=== PATIENT | male | born 1985 | race Caucasian/White ===

== ENCOUNTER 2022-05-28 14:26 | Inpatient (IN) ==
[2022-05-28 14:45] VITALS: BMI 34.8
[2022-05-28] MEDS ORDERED: ZOFRAN INJ 4 MG VIAL IVP ONE (14:57)
[2022-05-28] MEDS ORDERED: NS 1,000 ML IV 1,000 ML IV ONE (14:57)
--- NOTE | 2022-05-28 14:57 | DR.N/VMALE ---
HPI Time Seen Time Seen by Provider: 05/28/22 14:56 Primary Care Physician Primary Care Physician: ELISE RODRIGUEZ Complaints Chief Complaint Doctors Comments: 36 y/o male presents being ill since yesterday. Having frequent episodes of nausea, vomiting. Passed some bright blood 2 days ago, stopped. Vomited while waiting to come back, had black specks in it. + distant h/o PUD. Denies black stools. + lightheadedness, weakness. Almost passed out. Having epigastric pain, sharp, does not radiate. Nothing makes it better, nothing makes it worse. Denies fever, cough, congestion. + works in the heat. Chief Complaint:: PT C/O NAUSEA AND VOMITING SINCE YESTERDAY. PT C/O EPIGASTRIC PAIN WHEN HE VOMITS. PT DOES C/O LIGHTHEADEDNESS BUT DENIES PASSING OUT. PT DOES STATEE THAT HE HAD BRIGHT RED BLOOD IN HIS STOOL 2 DAYS AGO. COVID-19 Coronavirus risk:travel/contact w/high risk person: No Has patient experienced Coronavirus symptoms: No Reviewed Nurses Notes Reviewed: Yes Source History Provided: Patient Mode of Arrival Mode of Arrival: Wheelchair Timing Onset of Chief Complaint: 05/28/22 PMH PMH Past Medical History: Yes Past Medical History: Anxiety, Depression and Hypertension Past Medical History Comment: CHRONIC BACK PAIN Past Surgical History: Yes Surgical History: Ortho Surgery Family History History of Family Medical Conditions: Yes Family Medical History: Coronary Artery Disease Social History Does any household member use tobacco: No Alcohol Use: None Do you use any recreational Drugs:: No Lives With: Family Lives Where: Home Travel Risk Coronavirus risk:travel/contact w/high risk person: No Has patient experienced Coronavirus symptoms: No Infectious screening In the last 2 months have you had wt loss of >10#?: NO Have you had fever, night sweats or hemotysis?: No Have you traveled outside the country in the last 6 months?: No Isolation: Standard ROS Review of Systems Constitutional: Weakness and Fatigue Eyes: No Symptoms Reported ENTM: No Symptoms Reported Respiratoy: No Symptoms Reported Cardiovascular: No Symptoms Reported Gastrointestinal/Abdominal: Abdominal Pain, Nausea and Vomiting Genitourinary: No Symptoms Reported Neurological: Weakness and Dizziness Musculoskeletal: No Symptoms Reported Integumentary: No Symptoms Reported Hematologic/Lymphatic: No Symptoms Reported Psychiatric: No Symptoms Reported All Other Systems: Reviewed and Negative PE Vital Signs Vitals: Temperature 98.9 F Pulse Rate 87 Respiratory Rate 20 Blood Pressure [Left Arm] 111/68 Blood Pressure 108/76 O2 Sat by Pulse Oximetry 97 General General Appearance: Alert and In No Apparent Distress Head Head Exam: Normal Inspection Eyes Eye exam: Normal Appearance ENT ENT Exam: Normal Exam and Mucous Membranes Moist Neck Neck Exam: Normal Inspection and Full ROM Respiratory Respiratory Exam: Normal Lung Sounds Bilat; negative Accessory Muscle Use or Respiratory Distress Respiratory Exam: Bilateral: Clear to Auscultation Cardiovascular Cardiovascular Exam: Regular Rate, Normal Rhythm and Normal Heart Sounds Abdominal Exam Abdominal Exam: Normal Inspection, Normal Bowel Sounds, Soft and Tenderness (epigastric > RUQ. No guarding or rebound.) Extremities Extremities Exam: Normal Inspection; negative Edema Neurologic Neurological Exam: Alert, Oriented X3 and CN II-XII Intact; negative Motor Sensory Deficit Psychiatric Psychiatric Exam: Normal Affect Skin Skin Exam: Warm and Dry MDM Differential Diagnosis Differential Diagnosis: Considerations may Include:: Cholecystitis, Gastritis, Gastroenteritis, Pancreatitis and PUD COURSE Treatment Treatment: Pt ill x 2 days, + N/V, epigastric pain. W/u initiated. Given IV f luids, IV zofran/protonix. 1910 - Pt with elevated WBC, 21K, elevated Hgb 18.4 (is a smoker). CMP shows elevated Cr at 2.67, was normal last time checked. Has normal total CK. GB US was obtained, no obvious stones/sludge, no signs of inflammation. Has mildly elevated CBD at [address] of the abd/pelvis obtained, no acute abnormalities. Pt with vomiting, acute kidney injury. Leukocytosis probably reactive, no source for bacterial infection. Recommend admission for further treatment. Discussed with Dr Sampson, accepts the admission. ROR Labs Reviewed Result Diagrams: 05/28/22 15:35 05/28/22 15:35 Laboratory: WBC 21.3 X10^3/uL (3.6-10.0) H 05/28/22 15:35 RBC 5.47 X10^6/uL (4.7-6.0) 05/28/22 15:35 Hgb 18.4 g/dL (13.5-18.0) H 05/28/22 15:35 Hct 53.7 % (42.0-54.0) 05/28/22 15:35 MCV 98.1 fL (80.0-100.0) 05/28/22 15:35 MCH 33.7 pg (27.0-34.0) 05/28/22 15:35 MCHC 34.3 g/dL (33.0-35.0) 05/28/22 15:35 RDW 14.5 % (11.6-16.5) 05/28/22 15:35 Plt Count 401 X10^3/uL (150.0-450.0) 05/28/22 15:35 Plt Count Comment Adequate (ADEQUATE) 05/28/22 15:35 MPV 7.4 fL (7.4-11.0) 05/28/22 15:35 Neut % (Auto) 83.7 % (42.0-75.0) H 05/28/22 15:35 Lymph % (Auto) 9.7 % (21.0-51.0) L 05/28/22 15:35 [place] % (Auto) 5.3 % (0.0-13.0) 05/28/22 15:35 Eos % (Auto) 1.0 % (0.9-2.9) 05/28/22 15:35 Baso % (Auto) 0.3 % (0.2-1.0) 05/28/22 15:35 Neut # (Auto) 17.8 x10^3/uL (2.2-4.8) H 05/28/22 15:35 Lymph # (Auto) 2.1 X10^3/uL (1.3-2.9) 05/28/22 15:35 [place] # (Auto) 1.1 x10^3/uL (0.3-0.8) H 05/28/22 15:35 Eos # (Auto) 0.2 x10^3/uL (0.0-0.2) 05/28/22 15:35 Baso # (Auto) 0.1 X10^3/uL (0.0-0.1) 05/28/22 15:35 Absolute Nucleated RBC 0.0 /100WBC 05/28/22 15:35 Total Counted 100 05/28/22 15:35 Neutrophils % (Manual) 83 % (39-76) H 05/28/22 15:35 Lymphocytes % (Manual) 13 % (13-43) 05/28/22 15:35 Monocytes % (Manual) 3 % (4-9) L 05/28/22 15:35 Eosinophils % (Manual) 1 % (0-6) 05/28/22 15:35 Plt Morphology Comment Normal (NORMAL) 05/28/22 15:35 RBC Morphology Normal (NORMAL) 05/28/22 15:35 Sodium 141 mmol/L (136-145) 05/28/22 15:35 Corrected Sodium TNP 05/28/22 15:35 Potassium 4.4 mmol/L (3.5-5.1) 05/28/22 15:35 Chloride 101 mmol/L (98-107) 05/28/22 15:35 Carbon Dioxide 32.3 mmol/L (21-32) H 05/28/22 15:35 BUN 23 mg/dL (7-18) H 05/28/22 15:35 Creatinine 2.67 mg/dL (0.70-1.30) H 05/28/22 15:35 Est GFR (MDRD) Af Amer 35 (>60) L 05/28/22 15:35 Est GFR (MDRD) Non-Af 29 (>60) L 05/28/22 15:35 Glucose 108 mg/dL (65-99) H 05/28/22 15:35 Calcium 9.5 mg/dL (8.5-10.1) 05/28/22 15:35 Corrected Calcium TNP 05/28/22 15:35 Total Bilirubin 0.50 mg/dL (0.2-1.0) 05/28/22 15:35 AST 26 Units/L (15-37) 05/28/22 15:35 ALT 42 Units/L (12-78) 05/28/22 15:35 Alkaline Phosphatase 127 Units/L (46-116) H 05/28/22 15:35 Creatine Kinase 285 Units/L (39-308) 05/28/22 15:35 Total Protein 9.6 g/dL (6.4-8.2) H 05/28/22 15:35 Albumin 4.6 g/dL (3.4-5.0) 05/28/22 15:35 Globulin 5.0 g/dL (2.5-4.5) H 05/28/22 15:35 Albumin/Globulin Ratio 0.9 Ratio (1.1-2.1) L 05/28/22 15:35 Lipase 97 Units/L (73-393) 05/28/22 15:35 SARS-CoV-2 (PCR) Negative (NEGATIVE) 05/28/22 17:26 Opioid Opioid Risk Tool Age (Blake box if 16-45): Yes History of Preadolescent Sexual Abuse: No Total: 1 Total Score Risk Category: Low Risk Copyright: Jason MULLIGAN predicting aberrant behaviors Discharge Plan Diagnosis Discharge Problem: Vomiting, Acute nontraumatic kidney injury Discharge Plan Patient Disposition: HOME, SELF-CARE Condition: Stable Prescriptions: No Action methylprednisolone [Medrol (Ammon)] 4 mg tablets,dose pack See Rx Instructions .ROUTE .COMPLEX Qty: 21 0RF Rx Instructions: orally per package directions methylprednisolone [Medrol (Ammon)] 4 mg tablets,dose pack See Rx Instructions .ROUTE .COMPLEX Qty: 21 0RF Rx Instructions: orally per package directions tizanidine [Zanaflex] 4 mg tablet 4 mg PO Q8H PRN (Reason: muscle spasticity) Qty: 20 0RF Health Concerns: Post Hospitalization: new medications and changes needed to prevent readmission or further decline. Pt educated and given instructions on all concerns. Plan of Treatment: Continue with present treatment and follow up plan. Pt is to keep follow up appointment as instructed and take medications as ordered. Orders to Discharge Patient Discharge Orders: Discharge (Routine); Ordered 05/28/22 Ordered By: Bhavik Arcos Transfer (Routine); Ordered 05/28/22 Ordered By: Bhavik Arcos Follow ups/Referrals Follow ups/Referrals: ROSA HOANG [Primary Care Provider] - 3 days Instructions Stand Alone Forms: Precautions for COVID19, [facility], Patient Portal, Social Distancing
[2022-05-28] MEDS ORDERED: ZOFRAN INJ 4 MG VIAL ONE (15:06)
[2022-05-28] MEDS ORDERED: NS 1,000 ML IV 1,000 ML ONE ×2 (15:06→21:00)
[2022-05-28] MEDS ORDERED: PROTONIX INJ 40 MG VIAL IVP ONE (15:30)
[2022-05-28 15:43] LABS: BASOPHILS # (AUTO) 0.1 X10^3/uL (0.0-0.1); BASOPHILS % (AUTO) 0.3 % (0.2-1.0); EOSINOPHILS # (AUTO) 0.2 x10^3/uL (0.0-0.2); HEMATOCRIT 53.7 % (42.0-54.0); HEMOGLOBIN 18.4 g/dL (13.5-18.0); LYMPHOCYTES # (AUTO) 2.1 X10^3/uL (1.3-2.9); LYMPHOCYTES % (AUTO) 9.7 % (21.0-51.0); MEAN CORPUSCULAR HEMOGLOBIN 33.7 pg (27.0-34.0); MEAN CORPUSCULAR HGB CONC 34.3 g/dL (33.0-35.0); MEAN CORPUSCULAR VOLUME 98.1 fL (80.0-100.0); MEAN PLATELET VOLUME 7.4 fL (7.4-11.0); MONOCYTES # (AUTO) 1.1 x10^3/uL (0.3-0.8); MONOCYTES % (AUTO) 5.3 % (0.0-13.0); NEUTROPHILS # (AUTO) 17.8 x10^3/uL (2.2-4.8); NEUTROPHILS % (AUTO) 83.7 % (42.0-75.0); RED BLOOD COUNT 5.47 X10^6/uL (4.7-6.0); RED CELL DISTRIBUTION WIDTH 14.5 % (11.6-16.5); WHITE BLOOD COUNT 21.3 X10^3/uL (3.6-10.0)
[2022-05-28] MEDS ORDERED: PROTONIX INJ 40 MG VIAL ONE (15:46)
[2022-05-28 15:54] LABS: ALANINE AMINOTRANSFERASE 42 Units/L (12-78); ALBUMIN 4.6 g/dL (3.4-5.0); ALKALINE PHOSPHATASE 127 Units/L (46-116); ASPARTATE AMINO TRANSFERASE 26 Units/L (15-37); BLOOD UREA NITROGEN 23 mg/dL (7-18); CALCIUM 9.5 mg/dL (8.5-10.1); CARBON DIOXIDE 32.3 mmol/L (21-32); CHLORIDE 101 mmol/L (98-107); CREATINE KINASE 285 Units/L (39-308); CREATININE 2.67 mg/dL (0.70-1.30); LIPASE 97 Units/L (73-393); SODIUM 141 mmol/L (136-145); TOTAL PROTEIN 9.6 g/dL (6.4-8.2); eGFR NON BLACK RACES 29 (>60)
[2022-05-28 16:33] LABS: PLATELET MORPHOLOGY COMMENT NORMAL (NORMAL)
--- NOTE | 2022-05-28 16:54 | US ---
HISTORYReason For StudySTUDYGALL BLADDERCOMPARISONNoneTECHNIQUEMultiple guillen scale and color flow Doppler images of the right upper quadrant were obtained.FINDINGSThe liver is normal in echotexture and size . No focal intraparenchymal mass or intrahepatic biliary ductal dilatation can be observed. The gallbladder fails to demonstrate evidence for cholelithiasis or layering sludge . The common bile duct is mildly dilated measuring 8 mm in width.. No pericholecystic fluid or gallbladder wall thickening can be observed .The right kidney appears normal in size without focal parenchymal mass or nephrolithiasis. The right kidney measurers 11.6 cm in length. No hydronephrosis or perirenal fluid can be observed. The pancreatic head and body are unremarkable. The pancreatic tail is largely obscured by overlying bowel gas.IMPRESSIONMildly dilated common duct of uncertain etiology. No gallstones are seen. Consider follow-up MRCP.Electronically signed by: SHAHID ETIENNE (May 28, 2022 16:53:04)
--- NOTE | 2022-05-28 19:21 | CT ---
HISTORYC/O NAUSEA AND VOMITING SINCE YESTERDAY. PT C/O EPIGASTRIC PAIN WHEN HE VOMITS. PT DOES C/O LIGHTHEADEDNESS BUT DENIES PASSING OUT. PT DOES STATEE THAT HE HAD BRIGHT RED BLOOD IN HIS STOOL 2 DAYS AGO.STUDYABDOMEN/PELVIS W/O CONCOMPARISONCT abdomen and pelvis 01/29/2021TECHNIQUEMultiple CT axial images of the abdomen and pelvis were obtained without IV contrast. Coronal and sagittal images were reconstructed. Dose reduction techniques included Automated Exposure Control (AEC) and adjustment of mA and kV.FINDINGSThe lung bases are clear. Heart size is normal.Liver, gallbladder, spleen, adrenal glands, and pancreas are unremarkable.No abnormal calcifications are present in the kidneys, ureters, or urinary bladder.The kidneys have normal size and shape. There is no hydronephrosis or significant perirenal edema. The bladder is minimally distended. It has no wall thickening or perivesical edema.The bowel is not dilated. There is no wall thickening in the bowel or edema around the bowel. The appendix is normal in size with no inflammation around it. No evidence of appendicitis.Degenerative changes are present in the spine. Fixation hardware in the left femoral head and right femoral neck.The rectus sheath hematoma that was present on the prior study has resolved.IMPRESSION1. No acute finding or significant abnormalityElectronically signed by: Mikey Dorantes (May 28, 2022 19:19:45)
[2022-05-28] MEDS ORDERED: ZOFRAN INJ 4 MG VIAL IVP PRN (20:57)
[2022-05-28] MEDS: NS 1,000 ML IV 1,000 ML IV SCH (21:09)
[2022-05-28] MEDS ORDERED: LEVSIN/MAALOX/LIDOC VISC ONE (22:32)
[2022-05-28] MEDS: LEVSIN/MAALOX/LIDOC VISC PO PRN (22:35)
[2022-05-28] MEDS ORDERED: NICOTINE PATCH TD ONE (22:40)
[2022-05-28] MEDS: NICOTINE PATCH TD SCH (22:47)
[2022-05-29] MEDS ORDERED: NS 1,000 ML IV 1,000 ML ONE ×2 (03:55→11:01)
[2022-05-29] MEDS: NS 1,000 ML IV 1,000 ML IV SCH ×4 (03:57→20:05)
[2022-05-29 04:33] LABS: ALANINE AMINOTRANSFERASE 32 Units/L (12-78); ALBUMIN 3.3 g/dL (3.4-5.0); ALKALINE PHOSPHATASE 96 Units/L (46-116); ASPARTATE AMINO TRANSFERASE 18 Units/L (15-37); BLOOD UREA NITROGEN 29 mg/dL (7-18); CALCIUM 8.3 mg/dL (8.5-10.1); CARBON DIOXIDE 32.2 mmol/L (21-32); CHLORIDE 103 mmol/L (98-107); COR CA(FOR HYPOALB) 8.9 mg/dL (8.5-10.1); CREATININE 1.91 mg/dL (0.70-1.30); SODIUM 141 mmol/L (136-145); TOTAL PROTEIN 7.2 g/dL (6.4-8.2); eGFR NON BLACK RACES 42 (>60)
[2022-05-29 04:58] LABS: BASOPHILS % (AUTO) 0.3 % (0.2-1.0); EOSINOPHILS # (AUTO) 0.4 x10^3/uL (0.0-0.2); EOSINOPHILS % (AUTO) 3.6 % (0.9-2.9); HEMATOCRIT 46.2 % (42.0-54.0); LYMPHOCYTES # (AUTO) 3.5 X10^3/uL (1.3-2.9); LYMPHOCYTES % (AUTO) 28.1 % (21.0-51.0); MEAN CORPUSCULAR HEMOGLOBIN 33.7 pg (27.0-34.0); MEAN CORPUSCULAR HGB CONC 33.8 g/dL (33.0-35.0); MEAN CORPUSCULAR VOLUME 99.7 fL (80.0-100.0); MEAN PLATELET VOLUME 7.6 fL (7.4-11.0); MONOCYTES # (AUTO) 0.9 x10^3/uL (0.3-0.8); MONOCYTES % (AUTO) 7.2 % (0.0-13.0); NEUTROPHILS # (AUTO) 7.5 x10^3/uL (2.2-4.8); NEUTROPHILS % (AUTO) 60.8 % (42.0-75.0); RED BLOOD COUNT 4.64 X10^6/uL (4.7-6.0); RED CELL DISTRIBUTION WIDTH 14.4 % (11.6-16.5); WHITE BLOOD COUNT 12.3 X10^3/uL (3.6-10.0)
[2022-05-29 05:20] LABS: HEMOGLOBIN 15.6 g/dL (13.5-18.0)
--- NOTE | 2022-05-29 08:16 | DR.H&P ---
H&P History & Physical for Day of: H&P Date: 05/29/22 Chief Complaint Chief Complaint: Nausea/vomiting Blood in stool Abdominal pain Allergies Allergies Allergy/AdvReac Type Severity Reaction Status Date / Time No Known Drug Allergies Allergy Verified 01/02/21 13:07 History of Present Illness History of Present Illness: Pt is a 36 year old male past medical history of hypertension presenting with nausea, vomiting, abdominal pain for the past two days. He reports also feeling lightheaded and weak. He also states he noticed blood a week ago in his stool. Has not had any recent episodes. 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 Labs/imaging: Wbc 21>12.3, Hgb 18.4>15.6, Plt 401>333, Na 141, K 4, Creatinine 2.67>1.91, Glucose 87, Lipase 97, FOBT pending, CTAP was obtained that revealed: no acute findings, Gallbladder ultrasound noted: Mildly dilated common duct of uncertain etiology. No gallstones are seen. Consider follow-up MRCP. Pt was started on IVF NS@150ml/h, IV protonix 40mg BID, GI cocktail, Zofran prn. Will restart home medications. Continue IVF for acute renal failure likely due to dehydration. Monitor renal function, hold nephrotoxic agents. Will consult GI-Dr Weaver for further evaluation. Continue to closely monitor and follow up labs/imaging. Past Medical History Past Medical History: Anxiety, Depression and Hypertension Past Surgical History Surgical History: Ortho Surgery and Other Family History Family Medical History: Coronary Artery Disease Social History Type of Tobacco Use: Cigarettes Does any household member use tobacco: No Alcohol Use: Heavy and DAILY Drug Use: Marijuana Medications Home Medications: No Known Drug Allergies Allergy (Verified 01/02/21 13:07) Labs Result Diagrams: 05/29/22 03:10 05/29/22 03:10 Labs: Laboratory WBC 12.3 X10^3/uL (3.6-10.0) H D 05/29/22 03:10 RBC 4.64 X10^6/uL (4.7-6.0) L 05/29/22 03:10 Hgb 15.6 g/dL (13.5-18.0) D 05/29/22 03:10 Hct 46.2 % (42.0-54.0) 05/29/22 03:10 MCV 99.7 fL (80.0-100.0) 05/29/22 03:10 MCH 33.7 pg (27.0-34.0) 05/29/22 03:10 MCHC 33.8 g/dL (33.0-35.0) 05/29/22 03:10 RDW 14.4 % (11.6-16.5) 05/29/22 03:10 Plt Count 333 X10^3/uL (150.0-450.0) 05/29/22 03:10 Plt Count Comment Adequate (ADEQUATE) 05/28/22 15:35 MPV 7.6 fL (7.4-11.0) 05/29/22 03:10 Neut % (Auto) 60.8 % (42.0-75.0) 05/29/22 03:10 Lymph % (Auto) 28.1 % (21.0-51.0) 05/29/22 03:10 [place] % (Auto) 7.2 % (0.0-13.0) 05/29/22 03:10 Eos % (Auto) 3.6 % (0.9-2.9) H 05/29/22 03:10 Baso % (Auto) 0.3 % (0.2-1.0) 05/29/22 03:10 Neut # (Auto) 7.5 x10^3/uL (2.2-4.8) H 05/29/22 03:10 Lymph # (Auto) 3.5 X10^3/uL (1.3-2.9) H 05/29/22 03:10 [place] # (Auto) 0.9 x10^3/uL (0.3-0.8) H 05/29/22 03:10 Eos # (Auto) 0.4 x10^3/uL (0.0-0.2) H 05/29/22 03:10 Baso # (Auto) 0.0 X10^3/uL (0.0-0.1) 05/29/22 03:10 Absolute Nucleated RBC 0.1 /100WBC 05/29/22 03:10 Total Counted 100 05/28/22 15:35 Neutrophils % (Manual) 83 % (39-76) H 05/28/22 15:35 Lymphocytes % (Manual) 13 % (13-43) 05/28/22 15:35 Monocytes % (Manual) 3 % (4-9) L 05/28/22 15:35 Eosinophils % (Manual) 1 % (0-6) 05/28/22 15:35 Plt Morphology Comment Normal (NORMAL) 05/28/22 15:35 RBC Morphology Normal (NORMAL) 05/28/22 15:35 Sodium 141 mmol/L (136-145) 05/29/22 03:10 Corrected Sodium TNP 05/29/22 03:10 Potassium 4.0 mmol/L (3.5-5.1) 05/29/22 03:10 Chloride 103 mmol/L (98-107) 05/29/22 03:10 Carbon Dioxide 32.2 mmol/L (21-32) H 05/29/22 03:10 BUN 29 mg/dL (7-18) H 05/29/22 03:10 Creatinine 1.91 mg/dL (0.70-1.30) H 05/29/22 03:10 Est GFR (MDRD) Af Amer 51 (>60) L 05/29/22 03:10 Est GFR (MDRD) Non-Af 42 (>60) L 05/29/22 03:10 Glucose 87 mg/dL (65-99) 05/29/22 03:10 Calcium 8.3 mg/dL (8.5-10.1) L 05/29/22 03:10 Corrected Calcium 8.9 mg/dL (8.5-10.1) 05/29/22 03:10 Iron 128 ug/dL (50-175) 05/28/22 15:35 Transferrin 406 mg/dL (202-364) H 05/28/22 15:35 Ferritin 67 ng/mL (26-388) 05/28/22 15:35 Total Bilirubin 0.30 mg/dL (0.2-1.0) 05/29/22 03:10 AST 18 Units/L (15-37) 05/29/22 03:10 ALT 32 Units/L (12-78) 05/29/22 03:10 Alkaline Phosphatase 96 Units/L (46-116) 05/29/22 03:10 Creatine Kinase 285 Units/L (39-308) 05/28/22 15:35 Total Protein 7.2 g/dL (6.4-8.2) 05/29/22 03:10 Albumin 3.3 g/dL (3.4-5.0) L 05/29/22 03:10 Globulin 3.9 g/dL (2.5-4.5) 05/29/22 03:10 Albumin/Globulin Ratio 0.8 Ratio (1.1-2.1) L 05/29/22 03:10 Lipase 97 Units/L (73-393) 05/28/22 15:35 Vitamin B12 294 pg/mL (193-986) 05/28/22 15:35 Folate 19.2 ng/mL (>8.6) 05/28/22 15:35 SARS-CoV-2 (PCR) Negative (NEGATIVE) 05/28/22 17:26 Review of Systems Constitutional: Weakness Eyes: No Symptoms Reported ENT: No Symptoms Reported Respiratory: No Symptoms Reported Cardiovascular: No Symptoms Reported Gastrointestinal: Nausea, Vomiting and Abdominal Pain Genitourinary: No Symptoms Reported Musculoskeletal: No Symptoms Reported Skin: No Symptoms Reported Neurological: No Symptoms Reported Physical Exam Vital Signs: Temperature 98.5 F Pulse Rate [Right] 89 Pulse Rate 87 Respiratory Rate 18 Blood Pressure [Left Arm] 154/74 Blood Pressure 108/76 O2 Sat by Pulse Oximetry 97 Oriented: Normal Eyes: Normal Ear: Normal Nose: Normal Throat: Normal Respiratory: Clear Throughout Cardiovascular: Normal : Normal Auscultation: Bowel Sounds: Normal Palpation: Normal Tenderness: Epigastric Skin: Normal Musculoskeletal: Normal Psychiatric: Normal Mood Description: Calm and Appropriate Affect: Normal Speech Pattern: Clear and Appropriate Assessment/Plan (1) Acute renal failure (ARF): Narrative Support Text: IVF Monitor renal function Status: Acute (2) Nausea & vomiting: Status: Acute Review H&P Reviewed: Yes Patient was examined?: Yes
[2022-05-29] MEDS: NICOTINE PATCH TD SCH ×2 (09:53→21:46)
[2022-05-29] MEDS: PROTONIX INJ 40 MG VIAL IVP SCH ×2 (09:54→20:39)
[2022-05-29] MEDS ORDERED: NORCO 5/325 MG TAB ONE (09:55)
[2022-05-29] MEDS: NORCO 5/325 MG TAB PO PRN ×2 (09:55→19:26)
[2022-05-29] MEDS ORDERED: ZOFRAN INJ 4 MG VIAL IVP PRN (11:17)
[2022-05-29] MEDS ORDERED: LEVSIN/MAALOX/LIDOC VISC ONE (13:55)
[2022-05-29] MEDS: LEVSIN/MAALOX/LIDOC VISC PO PRN ×2 (13:56→19:27)
--- NOTE | 2022-05-29 17:21 | DR.CONSULT ---
Consult - Consultation for Day of: Date: 05/29/22 - Chief Complaint Chief Complaint: N/V, abdominal pain - History of Present Illness History of Present Illness: Pt is a 36 y/o who is referred for N/V and abdominal pain. Pt has complaints of N/V x3 days, hematemesis x1 day, abdominal pain, and dyspepsia. Pt denies dysphagia, constipation, hematochezia and melena. However, pt does report he had diarrhea 5 days ago that was bloody. Pt currently not taking any H2 blockers or PPIs. No previous colonoscopy reported. Last EGD over 10 years ago. No family history of colon cancer. Pt reports occasional use of NSAIDs. - Past Medical History Past Medical History: Hypertension, Depression, Anxiety - Past Surgical History Surgical History: Ortho Surgery, Other - Family History Family Medical History: Coronary Artery Disease - Social History Type of Tobacco Use: Cigarettes Does any household member use tobacco: No Alcohol Use: DAILY, Heavy Drug Use: Marijuana - Medications Home Medications: No Known Drug Allergies Allergy (Verified 01/02/21 13:07) - Review of Systems Constitutional: No Symptoms Reported Eyes: No Symptoms Reported ENT: No Symptoms Reported Respiratory: No Symptoms Reported Cardiovascular: No Symptoms Reported Gastrointestinal: No Symptoms Reported, Nausea, Vomiting, Abdominal Pain Genitourinary: No Symptoms Reported Musculoskeletal: No Symptoms Reported Skin: No Symptoms Reported Neurological: No Symptoms Reported - Physical Exam Vital Signs: Temperature 98.2 F Pulse Rate [Right] 66 Pulse Rate 87 Respiratory Rate 20 Blood Pressure [Left Arm] 138/59 Blood Pressure 108/76 O2 Sat by Pulse Oximetry 96 Oriented: Normal Eyes: Normal Ear: Normal Nose: Normal Throat: Normal Respiratory: Clear Throughout Cardiovascular: Normal : Normal Auscultation: Bowel Sounds: Normal Tenderness: RUQ Skin: Normal Musculoskeletal: Normal Psychiatric: Normal Mood Description: Calm Speech Pattern: Clear - Plan Plan: Assessment. 1. N/V, abdominal pain, severe dehydration. Plan. 1. EGD in AM. Plan d/w Dr. Weaver - Allergies Allergies/Adverse Reactions: Allergies Allergy/AdvReac Type Severity Reaction Status Date / Time No Known Drug Allergies Allergy Verified 01/02/21 13:07
[2022-05-30] MEDS: NS 1,000 ML IV 1,000 ML IV SCH ×3 (04:13→15:56)
[2022-05-30 06:12] LABS: BASOPHILS % (AUTO) 0.5 % (0.2-1.0); EOSINOPHILS # (AUTO) 0.3 x10^3/uL (0.0-0.2); EOSINOPHILS % (AUTO) 3.7 % (0.9-2.9); HEMATOCRIT 41.3 % (42.0-54.0); LYMPHOCYTES # (AUTO) 3.1 X10^3/uL (1.3-2.9); LYMPHOCYTES % (AUTO) 36.3 % (21.0-51.0); MEAN CORPUSCULAR HEMOGLOBIN 33.9 pg (27.0-34.0); MEAN CORPUSCULAR VOLUME 99.8 fL (80.0-100.0); MEAN PLATELET VOLUME 7.9 fL (7.4-11.0); MONOCYTES # (AUTO) 0.5 x10^3/uL (0.3-0.8); MONOCYTES % (AUTO) 5.6 % (0.0-13.0); NEUTROPHILS # (AUTO) 4.6 x10^3/uL (2.2-4.8); NEUTROPHILS % (AUTO) 53.9 % (42.0-75.0); RED BLOOD COUNT 4.14 X10^6/uL (4.7-6.0); RED CELL DISTRIBUTION WIDTH 14.2 % (11.6-16.5); WHITE BLOOD COUNT 8.6 X10^3/uL (3.6-10.0)
[2022-05-30 06:23] LABS: ALANINE AMINOTRANSFERASE 27 Units/L (12-78); ALBUMIN 2.7 g/dL (3.4-5.0); ALKALINE PHOSPHATASE 77 Units/L (46-116); ASPARTATE AMINO TRANSFERASE 10 Units/L (15-37); BLOOD UREA NITROGEN 23 mg/dL (7-18); CALCIUM 7.8 mg/dL (8.5-10.1); CARBON DIOXIDE 26.6 mmol/L (21-32); CHLORIDE 109 mmol/L (98-107); COR CA(FOR HYPOALB) 8.8 mg/dL (8.5-10.1); CREATININE 0.93 mg/dL (0.70-1.30); SODIUM 140 mmol/L (136-145); eGFR NON BLACK RACES > 60 (>60)
[2022-05-30] MEDS: NICOTINE PATCH TD SCH (09:56)
[2022-05-30] MEDS: PROTONIX INJ 40 MG VIAL IVP SCH (09:57)
[2022-05-30] MEDS: NORCO 5/325 MG TAB PO PRN ×2 (10:04→17:59)
[2022-05-30] MEDS ORDERED: D5 LR 1,000 ML 1,000 ML IV ONE (13:52)
[2022-05-30] MEDS ORDERED: DIPRIVAN VIAL 20 ML ONE (14:38)
--- NOTE | 2022-05-30 15:43 | PCM.PROG ---
Progress Note Progress Note for Day of Date of Exam: 05/30/22 Subjective Subjective: Pt is a 36 year old male past medical history of hypertension admitted for acute renal failure, abdominal pain, persistent nausea, vomiting. This morning he reports his symptoms have improved compared to yesterday. No acute events overnight. Labs/imaging: Wbc 8.6, Hgb 14, Plt 258, Na 140, K 4.1, Creatinine 0.93, Glucose 96. Pt is currently on IVF NS@150ml/h, IV protonix 40mg BID, GI cocktail, Zofran prn. Home medications were resumed. Significant improvement in renal function, continue to monitor. GI-Dr Weaver was consulted for further evaluation, pt is scheduled for EGD today. Continue to closely monitor and follow up labs and post-procedure results. Past Medical Family Social History Allergies: Allergies No Known Drug Allergies Allergy (Verified 01/02/21 13:07) Vital Signs and I&O's Vital Signs: Temperature 97.8 F Pulse Rate [Right] 64 Pulse Rate 56 Respiratory Rate 19 Blood Pressure [Left Arm] 134/79 Blood Pressure 119/81 O2 Sat by Pulse Oximetry 100 Intake and Output: Intake & Output 05/27/22 05/28/22 05/29/22 05/30/22 23:59 23:59 23:59 23:59 Intake Total 1350 / 1350 2120 / 2120 1300 / 1300 Balance 1350 / 1350 2120 / 2120 1300 / 1300 Physical Exam Oriented: Normal Eyes: Normal Ear: Normal Nose: Normal Throat: Normal Cardiovascular: Normal : Normal Auscultation: Bowel Sounds: Normal Tenderness: Epigastric Skin: Normal Musculoskeletal: Normal Psychiatric: Normal Mood Description: Calm Affect: Normal Speech Pattern: Clear and Appropriate Laboratory and Diagnostics Result Diagrams: 05/30/22 05:04 05/30/22 05:04 Labs: Laboratory WBC 8.6 X10^3/uL (3.6-10.0) 05/30/22 05:04 RBC 4.14 X10^6/uL (4.7-6.0) L 05/30/22 05:04 Hgb 14.0 g/dL (13.5-18.0) 05/30/22 05:04 Hct 41.3 % (42.0-54.0) L 05/30/22 05:04 MCV 99.8 fL (80.0-100.0) 05/30/22 05:04 MCH 33.9 pg (27.0-34.0) 05/30/22 05:04 MCHC 34.0 g/dL (33.0-35.0) 05/30/22 05:04 RDW 14.2 % (11.6-16.5) 05/30/22 05:04 Plt Count 258 X10^3/uL (150.0-450.0) 05/30/22 05:04 Plt Count Comment Adequate (ADEQUATE) 05/28/22 15:35 MPV 7.9 fL (7.4-11.0) 05/30/22 05:04 Neut % (Auto) 53.9 % (42.0-75.0) 05/30/22 05:04 Lymph % (Auto) 36.3 % (21.0-51.0) 05/30/22 05:04 [place] % (Auto) 5.6 % (0.0-13.0) 05/30/22 05:04 Eos % (Auto) 3.7 % (0.9-2.9) H 05/30/22 05:04 Baso % (Auto) 0.5 % (0.2-1.0) 05/30/22 05:04 Neut # (Auto) 4.6 x10^3/uL (2.2-4.8) 05/30/22 05:04 Lymph # (Auto) 3.1 X10^3/uL (1.3-2.9) H 05/30/22 05:04 [place] # (Auto) 0.5 x10^3/uL (0.3-0.8) 05/30/22 05:04 Eos # (Auto) 0.3 x10^3/uL (0.0-0.2) H 05/30/22 05:04 Baso # (Auto) 0.0 X10^3/uL (0.0-0.1) 05/30/22 05:04 Absolute Nucleated RBC 0.1 /100WBC 05/30/22 05:04 Total Counted 100 05/28/22 15:35 Neutrophils % (Manual) 83 % (39-76) H 05/28/22 15:35 Lymphocytes % (Manual) 13 % (13-43) 05/28/22 15:35 Monocytes % (Manual) 3 % (4-9) L 05/28/22 15:35 Eosinophils % (Manual) 1 % (0-6) 05/28/22 15:35 Plt Morphology Comment Normal (NORMAL) 05/28/22 15:35 RBC Morphology Normal (NORMAL) 05/28/22 15:35 Sodium 140 mmol/L (136-145) 05/30/22 05:04 Corrected Sodium TNP 05/30/22 05:04 Potassium 4.1 mmol/L (3.5-5.1) 05/30/22 05:04 Chloride 109 mmol/L (98-107) H 05/30/22 05:04 Carbon Dioxide 26.6 mmol/L (21-32) 05/30/22 05:04 BUN 23 mg/dL (7-18) H 05/30/22 05:04 Creatinine 0.93 mg/dL (0.70-1.30) 05/30/22 05:04 Est GFR (MDRD) Af Amer > 60 (>60) 05/30/22 05:04 Est GFR (MDRD) Non-Af > 60 (>60) 05/30/22 05:04 Glucose 96 mg/dL (65-99) 05/30/22 05:04 Calcium 7.8 mg/dL (8.5-10.1) L 05/30/22 05:04 Corrected Calcium 8.8 mg/dL (8.5-10.1) 05/30/22 05:04 Iron 128 ug/dL (50-175) 05/28/22 15:35 Transferrin 406 mg/dL (202-364) H 05/28/22 15:35 Ferritin 67 ng/mL (26-388) 05/28/22 15:35 Total Bilirubin 0.20 mg/dL (0.2-1.0) 05/30/22 05:04 AST 10 Units/L (15-37) L 05/30/22 05:04 ALT 27 Units/L (12-78) 05/30/22 05:04 Alkaline Phosphatase 77 Units/L (46-116) 05/30/22 05:04 Creatine Kinase 285 Units/L (39-308) 05/28/22 15:35 Total Protein 6.0 g/dL (6.4-8.2) L 05/30/22 05:04 Albumin 2.7 g/dL (3.4-5.0) L 05/30/22 05:04 Globulin 3.3 g/dL (2.5-4.5) 05/30/22 05:04 Albumin/Globulin Ratio 0.8 Ratio (1.1-2.1) L 05/30/22 05:04 Lipase 97 Units/L (73-393) 05/28/22 15:35 Vitamin B12 294 pg/mL (193-986) 05/28/22 15:35 Folate 19.2 ng/mL (>8.6) 05/28/22 15:35 SARS-CoV-2 (PCR) Negative (NEGATIVE) 05/28/22 17:26 Tissue Pathology To follow 05/30/22 14:41 Plan (1) Acute renal failure (ARF): Status: Acute (2) Nausea & vomiting: Status: Acute
[2022-05-30 18:11] VITALS: BP 139/89
[2022-05-30] MEDS ORDERED: PATIENT'S HOME MEDICATION PO SCH (21:00)
[2022-05-30] MEDS ORDERED: SEROquel TAB 25 mg PO SCH (21:00)
[2022-05-30] MEDS ORDERED: CARAFATE PO SCH (22:00)
--- NOTE | 2022-05-31 07:40 | W.DIS.FURT ---
Summary of Discharge Discharge Summary of Date Date of Exam: 05/30/22 Admission Date Date of Admission: 05/28/22 Admission Diagnosis Patient Problems (Updated 05/29/22 @ 11:17 by Herson Johnson) Vomiting (Acute) R11.10 Acute nontraumatic kidney injury (Acute) N17.9 Hospital Course: Pt left AMA. He did have EGD that showed distal esophageal ulcers, gastric ulcer, and moderately severe erosive gastritis. Recommendations were protonix 40mg BID and low fat diet with plan to follow up on biopsy results with GI outpatient. However, pt left AMA before any of this could be discussed. Vital Signs: Vital Signs (72 hours) 05/28/22 14:27 05/28/22 16:30 05/28/22 17:00 Temperature 98.9 F Pulse Rate 87 Pulse Rate [Right] Respiratory Rate 20 Blood Pressure 108/76 Blood Pressure [Left Arm] 108/69 116/71 O2 Sat by Pulse Oximetry 97 Oxygen Delivery Method Room Air 05/28/22 17:30 05/28/22 18:05 05/28/22 22:35 Temperature Pulse Rate Pulse Rate [Right] Respiratory Rate 18 Blood Pressure Blood Pressure [Left Arm] 112/74 111/68 O2 Sat by Pulse Oximetry Oxygen Delivery Method 05/29/22 00:00 05/28/22 23:35 05/28/22 20:57 Temperature 98.2 F Pulse Rate Pulse Rate [Right] 67 Respiratory Rate 16 18 Blood Pressure Blood Pressure [Left Arm] 103/58 O2 Sat by Pulse Oximetry 99 Oxygen Delivery Method Room Air Room Air 05/29/22 04:00 05/29/22 07:00 05/29/22 07:07 Temperature 98.1 F 98.5 F Pulse Rate Pulse Rate [Right] 50 L 89 Respiratory Rate 14 18 Blood Pressure Blood Pressure [Left Arm] 116/68 154/74 O2 Sat by Pulse Oximetry 96 97 Oxygen Delivery Method Room Air Room Air Room Air 05/29/22 09:55 05/29/22 10:55 05/29/22 13:56 Temperature Pulse Rate Pulse Rate [Right] Respiratory Rate 20 20 20 Blood Pressure Blood Pressure [Left Arm] O2 Sat by Pulse Oximetry Oxygen Delivery Method 05/29/22 12:00 05/29/22 16:00 05/29/22 14:56 Temperature 98.8 F 98.2 F Pulse Rate Pulse Rate [Right] 88 66 Respiratory Rate 20 20 20 Blood Pressure Blood Pressure [Left Arm] 138/78 138/59 O2 Sat by Pulse Oximetry 98 96 Oxygen Delivery Method Room Air Room Air 05/29/22 19:26 05/29/22 19:27 05/29/22 20:00 Temperature 98.1 F Pulse Rate Pulse Rate [Right] 64 Respiratory Rate 20 20 20 Blood Pressure Blood Pressure [Left Arm] 111/62 O2 Sat by Pulse Oximetry 99 Oxygen Delivery Method Room Air 05/29/22 19:00 05/29/22 20:26 05/29/22 20:27 Temperature Pulse Rate Pulse Rate [Right] Respiratory Rate 20 20 Blood Pressure Blood Pressure [Left Arm] O2 Sat by Pulse Oximetry Oxygen Delivery Method Room Air 05/30/22 00:00 05/30/22 04:00 05/30/22 10:04 Temperature 98.1 F 97.8 F Pulse Rate Pulse Rate [Right] 56 L 64 Respiratory Rate 18 20 20 Blood Pressure Blood Pressure [Left Arm] 121/70 112/66 O2 Sat by Pulse Oximetry 99 97 Oxygen Delivery Method Room Air Room Air 05/30/22 08:00 05/30/22 13:50 05/30/22 11:04 Temperature 98 F 97.8 F Pulse Rate 56 L Pulse Rate [Right] 64 Respiratory Rate 20 19 20 Blood Pressure 119/81 Blood Pressure [Left Arm] 134/79 O2 Sat by Pulse Oximetry 100 100 Oxygen Delivery Method Room Air Room Air 05/30/22 12:00 05/30/22 07:00 05/30/22 16:00 Temperature 97.9 F 98.6 F Pulse Rate Pulse Rate [Right] 64 56 L Respiratory Rate 20 18 Blood Pressure Blood Pressure [Left Arm] 126/78 151/88 O2 Sat by Pulse Oximetry 99 100 Oxygen Delivery Method Room Air Room Air 05/30/22 14:50 05/30/22 17:59 05/30/22 15:05 Temperature 98.6 F 98.6 F Pulse Rate Pulse Rate [Right] 60 64 Respiratory Rate 18 20 18 Blood Pressure Blood Pressure [Left Arm] 121/67 148/83 O2 Sat by Pulse Oximetry 100 100 Oxygen Delivery Method Room Air Room Air 05/30/22 15:20 05/30/22 15:35 05/30/22 15:50 Temperature 98.6 F 98.6 F 98.6 F Pulse Rate Pulse Rate [Right] 60 56 L 56 L Respiratory Rate 18 18 18 Blood Pressure Blood Pressure [Left Arm] 139/89 151/88 151/58 O2 Sat by Pulse Oximetry 100 100 100 Oxygen Delivery Method Room Air Labs: Laboratory Last Values WBC 8.6 X10^3/uL (3.6-10.0) 05/30/22 05:04 RBC 4.14 X10^6/uL (4.7-6.0) L 05/30/22 05:04 Hgb 14.0 g/dL (13.5-18.0) 05/30/22 05:04 Hct 41.3 % (42.0-54.0) L 05/30/22 05:04 MCV 99.8 fL (80.0-100.0) 05/30/22 05:04 MCH 33.9 pg (27.0-34.0) 05/30/22 05:04 MCHC 34.0 g/dL (33.0-35.0) 05/30/22 05:04 RDW 14.2 % (11.6-16.5) 05/30/22 05:04 Plt Count 258 X10^3/uL (150.0-450.0) 05/30/22 05:04 Plt Count Comment Adequate (ADEQUATE) 05/28/22 15:35 MPV 7.9 fL (7.4-11.0) 05/30/22 05:04 Neut % (Auto) 53.9 % (42.0-75.0) 05/30/22 05:04 Lymph % (Auto) 36.3 % (21.0-51.0) 05/30/22 05:04 [place] % (Auto) 5.6 % (0.0-13.0) 05/30/22 05:04 Eos % (Auto) 3.7 % (0.9-2.9) H 05/30/22 05:04 Baso % (Auto) 0.5 % (0.2-1.0) 05/30/22 05:04 Neut # (Auto) 4.6 x10^3/uL (2.2-4.8) 05/30/22 05:04 Lymph # (Auto) 3.1 X10^3/uL (1.3-2.9) H 05/30/22 05:04 [place] # (Auto) 0.5 x10^3/uL (0.3-0.8) 05/30/22 05:04 Eos # (Auto) 0.3 x10^3/uL (0.0-0.2) H 05/30/22 05:04 Baso # (Auto) 0.0 X10^3/uL (0.0-0.1) 05/30/22 05:04 Absolute Nucleated RBC 0.1 /100WBC 05/30/22 05:04 Total Counted 100 05/28/22 15:35 Neutrophils % (Manual) 83 % (39-76) H 05/28/22 15:35 Lymphocytes % (Manual) 13 % (13-43) 05/28/22 15:35 Monocytes % (Manual) 3 % (4-9) L 05/28/22 15:35 Eosinophils % (Manual) 1 % (0-6) 05/28/22 15:35 Plt Morphology Comment Normal (NORMAL) 05/28/22 15:35 RBC Morphology Normal (NORMAL) 05/28/22 15:35 Sodium 140 mmol/L (136-145) 05/30/22 05:04 Corrected Sodium TNP 05/30/22 05:04 Potassium 4.1 mmol/L (3.5-5.1) 05/30/22 05:04 Chloride 109 mmol/L (98-107) H 05/30/22 05:04 Carbon Dioxide 26.6 mmol/L (21-32) 05/30/22 05:04 BUN 23 mg/dL (7-18) H 05/30/22 05:04 Creatinine 0.93 mg/dL (0.70-1.30) 05/30/22 05:04 Est GFR (MDRD) Af Amer > 60 (>60) 05/30/22 05:04 Est GFR (MDRD) Non-Af > 60 (>60) 05/30/22 05:04 Glucose 96 mg/dL (65-99) 05/30/22 05:04 Calcium 7.8 mg/dL (8.5-10.1) L 05/30/22 05:04 Corrected Calcium 8.8 mg/dL (8.5-10.1) 05/30/22 05:04 Iron 128 ug/dL (50-175) 05/28/22 15:35 Transferrin 406 mg/dL (202-364) H 05/28/22 15:35 Ferritin 67 ng/mL (26-388) 05/28/22 15:35 Total Bilirubin 0.20 mg/dL (0.2-1.0) 05/30/22 05:04 AST 10 Units/L (15-37) L 05/30/22 05:04 ALT 27 Units/L (12-78) 05/30/22 05:04 Alkaline Phosphatase 77 Units/L (46-116) 05/30/22 05:04 Creatine Kinase 285 Units/L (39-308) 05/28/22 15:35 Total Protein 6.0 g/dL (6.4-8.2) L 05/30/22 05:04 Albumin 2.7 g/dL (3.4-5.0) L 05/30/22 05:04 Globulin 3.3 g/dL (2.5-4.5) 05/30/22 05:04 Albumin/Globulin Ratio 0.8 Ratio (1.1-2.1) L 05/30/22 05:04 Lipase 97 Units/L (73-393) 05/28/22 15:35 Vitamin B12 294 pg/mL (193-986) 05/28/22 15:35 Folate 19.2 ng/mL (>8.6) 05/28/22 15:35 SARS-CoV-2 (PCR) Negative (NEGATIVE) 05/28/22 17:26 Tissue Pathology To follow 05/30/22 14:41 Reason For Visit: VOMITING, ACUTE NONTRAUMATIC KIDNEY INJURY Discharge Diagnosis All Active Problems (Updated 05/29/22 @ 11:17 by Herson Johnson) Nausea & vomiting (Acute) Acute renal failure (ARF) (Acute) Contusion (Acute) Cellulitis (Acute) Edema (Acute) Back strain (Acute) Back pain (Acute) Low back pain (Acute) Degenerative disc disease at L5-S1 level (Acute) Urinary tract infection (Acute) Muscle spasm (Acute) Ankle strain (Acute) Depression (Acute) Active substance abuse (Acute) Gout attack (Acute) Sprain of toe, great, left (Acute) Strain of thoracic spine (Acute) Lumbosacral strain (Acute) Vomiting (Acute) Acute nontraumatic kidney injury (Acute) Plan of Treatment: Continue with present treatment and follow up plan. Pt is to keep follow up appointment as instructed and take medications as ordered. Discharge Medications Discharge Medications: No Known Drug Allergies Allergy (Verified 01/02/21 13:07) CONTINUE taking the following medications acetaminophen 300 mg-codeine 30 mg tablet 1 tab PO BID PRN 05/30/22 [History] lisinopril 20 mg tablet 20 mg PO DAILY 05/30/22 [History] orphenadrine citrate 100 mg tablet,extended release 100 mg PO HS 05/30/22 [History] quetiapine 25 mg tablet 25 mg PO HS 05/30/22 [History] Discharge Plan Discharge Plan Hospital Course: Pt left AMA. He did have EGD that showed distal esophageal ulcers, gastric ulcer, and moderately severe erosive gastritis. Recommendations were protonix 40mg BID and low fat diet with plan to follow up on biopsy results with GI outpatient. However, pt left AMA before any of this could be discussed. Patient Disposition: AGAINST MEDICAL ADVICE Condition: Stable Health Concerns: Post Hospitalization: new medications and changes needed to prevent readmission or further decline. Pt educated and given instructions on all concerns. Plan of Treatment: Continue with present treatment and follow up plan. Pt is to keep follow up appointment as instructed and take medications as ordered. Prescriptions: No Action quetiapine 25 mg Tablet 25 mg PO HS lisinopril 20 mg Tablet 20 mg PO DAILY acetaminophen-codeine 300-30 mg Tablet 1 tab PO BID PRN orphenadrine citrate 100 mg Tablet Extended Release 100 mg PO HS Follow ups/Referrals Follow ups/Referrals: ROSA HOANG [Primary Care Provider] - 3 days Instructions Stand Alone Forms: Excuse From Work or School, Precautions for COVID19, [facility], Patient Portal, Social Distancing
[2022-05-31] MEDS ORDERED: ZESTRIL TAB 20 MG PO SCH (09:00)
== END 2022-05-31 06:30 | disposition left against medical advice (07) | DRG 683 ==
LOC: ER 14:26 → U 19:34 → MED/SURG 05-29 14:49
PROVIDERS: ADMIT Internal Medicine; ATTEND Internal Medicine
DX: Z20.822 Contact with and (suspected) exposure to COVID-19; R10.13 Epigastric pain; K22.10 Ulcer of esophagus without bleeding; Z53.29 Procedure and treatment not carried out because of patient's decision for other reasons; N17.8 Other acute kidney failure; R10.84 Generalized abdominal pain; K92.0 Hematemesis; Z72.0 Tobacco use; I10 Essential (primary) hypertension; E86.0 Dehydration; K25.9 Gastric ulcer, unspecified as acute or chronic, without hemorrhage or perforation